=== PATIENT | female | born 1990 | race Caucasian/White ===

== ENCOUNTER 2021-10-08 22:43 | Observation (INO) | payer MEDICAID ==
[~2021-10-08] VITALS: Ht 154.9 cm; Wt 84.8 kg
[2021-10-08] MEDS ORDERED: PREN1TAB78 PO (23:19)
== END 2021-10-09 01:10 | disposition home or self-care (01) ==
LOC: 8 EST LDRP 22:43
PROVIDERS: ADMIT Obstetrics & Gynecology; ATTEND Obstetrics & Gynecology
DX: O26.893 Other specified pregnancy related conditions, third trimester (principal); R10.30 Lower abdominal pain, unspecified; O26.853 Spotting complicating pregnancy, third trimester; Z3A.38 38 weeks gestation of pregnancy
CPT/HCPCS: 59025; G0378; 99281; G0379

== ENCOUNTER 2021-10-16 15:24 | Inpatient (IN) | payer MEDICAID ==
[~2021-10-16] VITALS: Ht 154.9 cm; Wt 85.7 kg
[~2021-10-16 15:24] MED LIST: PREN1TAB78 PO
[2021-10-16 17:12] LABS: CLARITY URINE CLEAR (CLEAR); COLOR URINE YELLOW (YELLOW); KETONES URINE NEGATIVE (NEGATIVE); LEUKOCYTE ESTERASE URINE 1+ (NEGATIVE); NITRITE URINE NEGATIVE (NEGATIVE); OCCULT BLOOD URINE NEGATIVE (NEGATIVE); PH URINE 6.5 (4.5-8.0); PROTEIN URINE NEGATIVE (NEGATIVE); SPECIFIC GRAVITY URINE 1.014 (1.005-1.030); UROBILINOGEN URINE 0.2 E.U./dL (0.2-1.0)
[2021-10-16 17:17] LABS: BASOPHILS % 0.5 % (0.0-2.0); EOSINOPHILS % 0.4 % (0.0-5.0); HEMATOCRIT. 35.7 % (36.0-48.0); HEMOGLOBIN. 12.2 g/dL (12.0-16.0); LYMPHOCYTES % 18.8 % (20.0-50.0); MEAN PLATELET VOLUME 9.8 fl (7.4-10.4); MONOCYTES % 9.5 % (2.0-8.0); NEUTROPHILS % 70.8 % (40.0-76.0); PLATELET 169 x1000/uL (130-400); RED BLOOD CELL COUNT 4.36 mill/uL (4.2-5.4); RED CELL DISTRIBUTION WIDTH 14.7 % (11.6-14.6)
[2021-10-16 17:36] LABS: *AMPHETAMINES SCREEN URINE NEGATIVE (NEGATIVE); *BARBITURATES SCREEN URINE NEGATIVE (NEGATIVE); *BENZODIAZEPINES SCREEN URINE NEGATIVE (NEGATIVE); *COCAINE SCREEN URINE NEGATIVE (NEGATIVE); METHADONE URINE SCREEN NEGATIVE (NEGATIVE); OPIATES URINE SCREEN NEGATIVE (NEGATIVE)
[2021-10-16 17:37] LABS: CANNABINOID URINE SCREEN NEGATIVE (NEGATIVE); PHENCYCLIDINE URINE SCREEN NEGATIVE (NEGATIVE)
[2021-10-16 17:44] LABS: INR 0.9; PARTIAL THROMBOPLASTIN TIME 26.2 sec (23.4-31.0); PROTHROMBIN TIME 9.9 sec (9.6-11.0)
[2021-10-16 18:03] LABS: HEPATITIS B SURFACE ANTIGEN NEGATIVE
[2021-10-16] MEDS ORDERED: BUTORPHANOL TARTRATE 2 MG/ML VIAL IV PRN (18:45)
[2021-10-16] MEDS ORDERED: DEXT 5%/LR + PITOCIN 20UNITS/L 1,000 ML IV SCH (18:45)
[2021-10-16] MEDS ORDERED: CARBOPROST TROMETHAMINE 250 MCG/ML AMPUL IM PRN (18:45)
[2021-10-16] MEDS ORDERED: NALOXONE HCL 0.4 MG/ML 1ML VIAL IM PRN (18:45)
[2021-10-16] MEDS ORDERED: RHO(D) IMMUNE GLOBULIN 300 MCG/SYR IM ONE (18:45)
[2021-10-16] MEDS ORDERED: METHYLERGONOVINE MALEATE 0.2 MG/ML IM PRN (18:45)
[2021-10-16] MEDS ORDERED: LIDOCAINE HCL 1% 10 MG/ML 10ML VIAL IJ SCH (18:45)
[2021-10-16] MEDS ORDERED: PENICILLIN G POTASSIUM 5 MMU in DEXT 5% WATER 100 ML IV ONE (19:30)
[2021-10-16] MEDS ORDERED: ROPIVACAINE HCL/PF 100ML 200 ML INFIL SCH (20:15)
[2021-10-16] MEDS: LACTATED RINGERS 1,000 ML IV SCH (20:53)
[2021-10-17] MEDS: PENICILLIN G POTASSIUM 2.5 MMU in DEXTROSE 5% WATER 50 ML IV SCH ×3 (01:32→13:02)
[2021-10-17] MEDS: LACTATED RINGERS 1,000 ML IV SCH (08:35)
[2021-10-17] MEDS ORDERED: FENTANYL CITRATE/PF 50MCG/ML 2ML VIAL ONE ×2 (10:27→13:35)
[2021-10-17] MEDS ORDERED: ACETAMINOPHEN 325MG TABLET PO PRN (13:15)
[2021-10-17] MEDS ORDERED: IBUPROFEN 400MG TABLET PO PRN (16:15)
[2021-10-17] MEDS ORDERED: RHO(D) IMMUNE GLOBULIN 300 MCG/SYR IM PRN (16:15)
[2021-10-17 17:30] VITALS: BP 109/64
[2021-10-17 18:30] VITALS: BP 122/72
[2021-10-17] MEDS ORDERED: DEXT 5%/LR + PITOCIN 20UNITS/L 1,000 ML IV SCH (18:30)
[2021-10-17] MEDS ORDERED: TETANUS AND DIPHTHERIA TOX/PF 0.5ML SYR (ADULT) IM ONE (19:00)
[2021-10-17 19:10] VITALS: BP 119/67
[2021-10-17] MEDS: IBUPROFEN 800MG TABLET PO PRN (20:29)
[2021-10-18 04:00] VITALS: BP 105/61
[2021-10-18 07:13] LABS: BASOPHILS % 0.2 % (0.0-2.0); EOSINOPHILS % 0.9 % (0.0-5.0); HEMATOCRIT. 32.3 % (36.0-48.0); HEMOGLOBIN. 10.9 g/dL (12.0-16.0); LYMPHOCYTES % 13.6 % (20.0-50.0); MEAN CORPUSCULAR VOLUME 83.3 fL (81.0-99.0); MEAN PLATELET VOLUME 10.1 fl (7.4-10.4); MONOCYTES % 7.6 % (2.0-8.0); NEUTROPHILS % 77.7 % (40.0-76.0); PLATELET 133 x1000/uL (130-400); RED BLOOD CELL COUNT 3.88 mill/uL (4.2-5.4)
[2021-10-18] MEDS: FERROUS SULFATE 325MG TABLET PO SCH ×3 (07:30→20:00)
[2021-10-18 08:00] VITALS: BP 111/79
[2021-10-18] MEDS: PRENATAL VIT/FE FUMARATE/FA TABLET PO SCH (08:16)
[2021-10-18] MEDS: IBUPROFEN 800MG TABLET PO PRN (12:59)
[2021-10-18 16:00] VITALS: BP 106/70
[2021-10-18 19:40] VITALS: BP 116/67
[2021-10-18] MEDS ORDERED: FENTANYL CITRATE/PF 50MCG/ML 2ML VIAL ONE (21:31)
[2021-10-18] MEDS ORDERED: MORPHINE SULFATE/PF 1MG/ML 10ML AMP ONE (21:31)
[2021-10-18] MEDS ORDERED: CEFAZOLIN SODIUM 1000MG/VIAL ONE (21:56)
[2021-10-18] MEDS ORDERED: EPHEDRINE SULFATE 50MG/ML VIAL ONE (21:57)
[2021-10-18] MEDS ORDERED: SODIUM CHLORIDE 0.9% 10ML VIAL ONE (21:57)
[2021-10-18] MEDS ORDERED: LABETALOL 5MG/ML SYR 20 MG/4 ML SYRINGE IV PRN (22:00)
[2021-10-18] MEDS ORDERED: MEPERIDINE HCL/PF 25MG/ML CPJ IV PRN (22:00)
[2021-10-18] MEDS ORDERED: HYDROMORPHONE HCL/PF 2MG/ML CPJ IV PRN (22:00)
[2021-10-18] MEDS ORDERED: ONDANSETRON HCL 4MG/2ML INJ IV PRN (22:00)
[2021-10-18 23:50] VITALS: BP 108/59
[2021-10-19 00:20] VITALS: BP 104/51
[2021-10-19] MEDS: IBUPROFEN 800MG TABLET PO PRN (00:28)
[2021-10-19] MEDS: LACTATED RINGERS 1,000 ML IV SCH (00:34)
[2021-10-19 00:50] VITALS: BP 107/59
[2021-10-19 03:00] VITALS: BP 121/69
[2021-10-19] MEDS: FERROUS SULFATE 325MG TABLET PO SCH ×2 (07:30→13:10)
[2021-10-19 08:00] VITALS: BP 108/69
[2021-10-19] MEDS: PRENATAL VIT/FE FUMARATE/FA TABLET PO SCH (08:57)
[2021-10-19] MEDS ORDERED: ONDANSETRON HCL 4MG/2ML INJ IV PRN (11:00)
== END 2021-10-19 15:40 | disposition home or self-care (01) | DRG 541 ==
LOC: 8 EST LDRP 15:24 → OBSVTOIN 15:24 → 8 EST LDRP 20:12 → 8EST 10-17 18:18
PROVIDERS: ADMIT Obstetrics & Gynecology; ATTEND Obstetrics & Gynecology
PROC: 10E0XZZ Delivery of Products of Conception, External Approach (ICD-10-PCS; 2021-10-17)
PROC: 3E0R3BZ Introduction of Anesthetic Agent into Spinal Canal, Percutaneous Approach (ICD-10-PCS; 2021-10-17)
PROC: 00HU33Z Insertion of Infusion Device into Spinal Canal, Percutaneous Approach (ICD-10-PCS; 2021-10-17)
PROC: 0UT70ZZ Resection of Bilateral Fallopian Tubes, Open Approach (ICD-10-PCS; principal; 2021-10-18)
DX: O77.0 Labor and delivery complicated by meconium in amniotic fluid (principal); Z37.0 Single live birth; O69.81X0 Labor and delivery complicated by cord around neck, without compression, not applicable or unspecified; Z20.822 Contact with and (suspected) exposure to COVID-19; Z3A.40 40 weeks gestation of pregnancy; Z30.2 Encounter for sterilization
CPT/HCPCS: 36415; 80305; 81003; 85025; 86592; 86703; 86762; 86850; 86900; 87340; 87426; 88302; 90714; 99281; G0378; J0690; J2274; J2405; J2540; J2590; J2795; J3010; J3490; J7060; A4315